=== PATIENT | female | born 1980 | race American Indian/Alaskan Native ===

== ENCOUNTER 2017-06-04 16:32 | Emergency (ER) | payer OTHER ==
[2017-06-04 16:33] VITALS: BMI 29.0
[2017-06-04 16:53] VITALS: PULSE 75; TEMP 98
--- NOTE | 2017-06-04 17:13 | ED PDOC ---
Arrival/HPI - General Historian: Patient - General Chief Complaint: Abnormal Skin Integrity Time Seen by Provider: 06/04/17 16:58 - History of Present Illness Narrative History of Present Illness (Text): 06/04/17 17:54 36yo female who present with few days history of very pruritic rash to her back , face and neck. She denies previous history. Denies any inciting factors. Denies SOB, drooling, chest pain, any other complaint. (Danny Lennon) Past Medical History - Provider Review Nursing Documentation Reviewed: Yes - Infectious Disease Hx of Infectious Diseases: None - Tetanus Immunization Tetanus Immunization: Unknown - Reproductive Menopause: No - Cardiac Hx Cardiac Disorders: No - Pulmonary Hx Respiratory Disorders: No - Neurological Hx Neurological Disorder: No - HEENT Hx HEENT Disorder: No - Renal Hx Renal Disorder: No - Endocrine/Metabolic Hx Endocrine Disorders: No - Hematological/Oncological Hx Blood Disorders: No - Integumentary Hx Dermatological Disorder: No - Musculoskeletal/Rheumatological Hx Musculoskeletal Disorders: Yes Hx Back Pain: Yes Hx Herniated Disk: Yes Other/Comment: sciatica - Gastrointestinal Hx Gall Bladder Disease: Yes - Genitourinary/Gynecological Hx Genitourinary Disorders: Yes Hx Urinary Tract Infection: Yes Other/Comment: OVARIAN CYST, ENDOMETRIOSIS. L ovary removed - Psychiatric Hx Anxiety: Yes Hx Substance Use: No - Surgical History Hx Cholecystectomy: Yes (09/09/15) Other/Comment: right ovary removed - Anesthesia Hx Anesthesia: Yes Hx Anesthesia Reactions: No Hx Malignant Hyperthermia: No - Suicidal Assessment Feels Threatened In Home Enviroment: No Family/Social History - Physician Review Nursing Documentation Reviewed: Yes Family/Social History: Unknown Family HX Smoking Status: Heavy Smoker > 10 Cigarettes Daily Hx Alcohol Use: Yes Frequency of alcohol use: Socially Hx Substance Use: No Hx Substance Use Treatment: No Allergies/Home Meds Allergies/Adverse Reactions: Allergies chocolate flavor Allergy (Verified 06/04/17 16:52) ANGIOEDEMA coconut Adverse Reaction (Verified 06/04/17 16:52) RASH Home Medications: Home Meds Medication Instructions Recorded Confirmed Alprazolam [Xanax] 2 mg PO BID 09/02/15 06/04/17 Tizanidine HCl [Zanaflex Capsule] 4 mg PO HS 06/17/16 06/04/17 oxyCODONE [oxyCODONE Immediate 30 mg PO TID 12/06/16 06/04/17 Release Tab] Review of Systems - Physician Review All systems were reviewed & negative as marked: Yes - Review of Systems Constitutional: Normal Eyes: Normal ENT: Normal Respiratory: Normal Cardiovascular: Normal Gastrointestinal: Normal Genitourinary Female: Normal Musculoskeletal: Normal Skin: Rash, Pruritis Neurological: Normal Endocrine: Normal Hemo/Lymphatic: Normal Psychiatric: Normal Physical Exam Vital Signs Reviewed: Yes Temperature: Afebrile Blood Pressure: Normal Pulse: Regular Respiratory Rate: Normal Appearance: Positive for: Well-Appearing, Non-Toxic, Comfortable Pain Distress: None Mental Status: Positive for: Alert and Oriented X 3 - Systems Exam Head: Present: Atraumatic, Normocephalic Pupils: Present: PERRL Extroacular Muscles: Present: EOMI Conjunctiva: Present: Normal Mouth: Present: Moist Mucous Membranes Neck: Present: Normal Range of Motion Respiratory/Chest: Present: Clear to Auscultation, Good Air Exchange. No: Respiratory Distress, Accessory Muscle Use Cardiovascular: Present: Regular Rate and Rhythm, Normal S1, S2. No: Murmurs Abdomen: Present: Normal Bowel Sounds. No: Tenderness, Distention, Peritoneal Signs Back: Present: Normal Inspection Upper Extremity: Present: Normal Inspection. No: Cyanosis, Edema Lower Extremity: Present: Normal Inspection. No: Edema Neurological: Present: GCS=15, CN II-XII Intact, Speech Normal Skin: Present: Warm, Dry, Rashes (Hypopigmented macule/patches noted on upper back and face), Normal Color Psychiatric: Present: Alert, Oriented x 3, Normal Insight, Normal Concentration Medical Decision Making ED Course and Treatment: 06/04/17 18:35 Pt was DC home with a rx of Ketoconazole cream and referred to a Endoscope Technician. (Danny Lennon A) I was available for consultation during PA evaluation. The chart was reviewed by me, and I agree with disposition. The documented history was done by the physician guest relations agent. The documented physical exam was done by the physician guest relations agent. The documented procedures were done by the physician guest relations agent. ( Rosalio Alegria) Disposition/Present on Arrival - Present on Arrival Any Indicators Present on Arrival: No History of DVT/PE: No History of Uncontrolled Diabetes: No Urinary Catheter: No History of Decub. Ulcer: No History Surgical Site Infection Following: None - Disposition Have Diagnosis and Disposition been Completed?: Yes Disposition Time: 17:20 Patient Plan: Discharge - Disposition Diagnosis: Tinea versicolor Disposition: HOME/ ROUTINE Condition: STABLE Discharge Instructions (ExitCare): Tinea Versicolor (ED) Additional Instructions: Follow up with your doctor/Endoscope Technician Return to ED for any new or worsening symptoms Prescriptions: Ketoconazole 2% Cr [Nizoral] 2 % TP DAILY #2 Referrals: Anabelle Mcpherson MD [Staff Provider] - Follow up with primary
[2017-06-04 17:31] VITALS: BP 124/80; RESP 18; O2SAT 99
== END 2017-06-04 17:25 | disposition home or self-care (01) ==
LOC: ED 16:32
DX: B36.0 Pityriasis versicolor (principal)

== ENCOUNTER 2017-08-01 18:53 | Emergency (ER) | payer OTHER ==
[2017-08-01 18:53] VITALS: BMI 29.0
== END 2017-08-01 20:11 | disposition left against medical advice (07) ==
LOC: ED 18:53
DX: Z02.89 Encounter for other administrative examinations (principal); L02.91 Cutaneous abscess, unspecified

== ENCOUNTER 2018-01-27 13:29 | Emergency (ER) | payer OTHER ==
[2018-01-27 13:30] VITALS: BMI 29.0
[2018-01-27 14:25] VITALS: RESP 18; TEMP 98; O2SAT 97
[2018-01-27] MEDS ORDERED: HYDROmorphone 0.5 mg/0.5 ml ISec IVP PRN (14:45)
--- NOTE | 2018-01-27 14:55 | ED PDOC ---
Arrival/HPI <Yoseph Holley - Last Filed: 01/27/18 16:35> - General Historian: Patient - History of Present Illness Time/Duration: Prior to Arrival, Other (2 weeks) Symptom Onset: Gradual Symptom Course: Unchanged Quality: Unable to Describe Severity Level: 10 Activities at Onset: Rest Context: Home <Darek Almanzar - Last Filed: 01/27/18 19:22> - General Chief Complaint: Pain, Chronic Time Seen by Provider: 01/27/18 13:30 - History of Present Illness Narrative History of Present Illness (Text): 01/27/18 15:05 37F w/ history of chronic back pain, spinal stenosis 2/2 herniated disc in thoracic and lumbar, anxiety, PTSD presents [place] [facility] w/ left sided arm pain, numbness, and unable to move that has been getting progressively worse over the last 2 weeks. Patient denies any acute trauma to the area. Admits to having similar symptoms 2 years ago, that resolved after taking pain medication. Patient states that she has not been able to use the left arm, and keeps it statinary and immobile all day. Baseline for LUE is movement and ADLs. Currently patient sees pain management Melita Loja GEAR MILLING MACHINE SET UP OPERATOR in [place], and Psychiatry Dr. Ragland in [place]. PMH: herniated disc lumbar and thoracic, spinal stenosis, anxiety, PTSD, endometriosis PSH: [facility] 2014 ALL: NKDA SocialHx: 1/2 ppd > 30 years, occasional ETOH, denies recrational drug use. Lives w/ female partner Meds: oxy 30 TID, xanax 2mg, nortiriptyline (Darek) Past Medical History - Provider Review Nursing Documentation Reviewed: Yes - Travel History Have you recently traveled outside [place] w/in the past 3 mons?: No - Past History Past History: Non-Contributing - Infectious Disease Hx of Infectious Diseases: None - Tetanus Immunization Tetanus Immunization: Unknown - Cardiac Hx Cardiac Disorders: No - Pulmonary Hx Respiratory Disorders: No - Neurological Hx Neurological Disorder: No - HEENT Hx HEENT Disorder: No - Renal Hx Renal Disorder: No - Endocrine/Metabolic Hx Endocrine Disorders: No - Hematological/Oncological Hx Blood Disorders: No - Integumentary Hx Dermatological Disorder: No - Musculoskeletal/Rheumatological Hx Musculoskeletal Disorders: Yes Hx Back Pain: Yes Hx Herniated Disk: Yes Other/Comment: sciatica - Gastrointestinal Hx Gall Bladder Disease: Yes - Genitourinary/Gynecological Hx Genitourinary Disorders: Yes Hx Urinary Tract Infection: Yes Other/Comment: OVARIAN CYST, ENDOMETRIOSIS. L ovary removed - Psychiatric Hx Anxiety: Yes Hx Substance Use: No - Surgical History Hx Cholecystectomy: Yes (09/09/15) Other/Comment: right ovary removed - Anesthesia Hx Anesthesia: Yes Hx Anesthesia Reactions: No Hx Malignant Hyperthermia: No - Suicidal Assessment Feels Threatened In Home Enviroment: No <Darek Amlanzar - Last Filed: 01/27/18 19:22> Family/Social History Family/Social History: No Known Family HX Smoking Status: Heavy Smoker > 10 Cigarettes Daily Hx Alcohol Use: Yes Hx Substance Use: No Hx Substance Use Treatment: No <Darek Almanzar - Last Filed: 01/27/18 19:22> Allergies/Home Meds <Yoseph Holley - Last Filed: 01/27/18 16:35> <Darek Almanzar - Last Filed: 01/27/18 19:22> Allergies/Adverse Reactions: Allergies chocolate flavor Allergy (Verified 06/04/17 16:52) ANGIOEDEMA coconut Adverse Reaction (Verified 06/04/17 16:52) RASH Home Medications: Home Meds Medication Instructions Recorded Confirmed Alprazolam [Xanax] 2 mg PO BID 09/02/15 06/04/17 Tizanidine HCl [Zanaflex Capsule] 4 mg PO HS 06/17/16 06/04/17 oxyCODONE [oxyCODONE Immediate 30 mg PO TID 12/06/16 06/04/17 Release Tab] Review of Systems - Physician Review All systems were reviewed & negative as marked: Yes <Yoseph Holley - Last Filed: 01/27/18 16:35> - Review of Systems Constitutional: Fatigue Eyes: Normal ENT: Normal Respiratory: Normal Cardiovascular: Normal. absent: Chest Pain, Palpitations, Edema Gastrointestinal: absent: Abdominal Pain Musculoskeletal: Neck Pain, Joint Swelling, Other (localized swelling in joint) Skin: absent: Rash, Pruritis, Skin Lesions <Darek Almanzar - Last Filed: 01/27/18 19:22> Physical Exam Vital Signs Reviewed: Yes Temperature: Afebrile Blood Pressure: Normal Pulse: Regular Respiratory Rate: Normal Appearance: Positive for: Well-Appearing, Comfortable Pain Distress: Severe Mental Status: Positive for: Alert and Oriented X 3 - Systems Exam Head: Present: Atraumatic Pupils: Present: PERRL Extroacular Muscles: Present: EOMI Mouth: Present: Moist Mucous Membranes Respiratory/Chest: Present: Clear to Auscultation, Good Air Exchange. No: Respiratory Distress, Accessory Muscle Use, Wheezes Cardiovascular: Present: Regular Rate and Rhythm, Normal S1, S2. No: Murmurs, Tachycardic, Bradycardic Abdomen: No: Tenderness, Distention, Normal Bowel Sounds, Peritoneal Signs Upper Extremity: Present: NORMAL PULSES, Swelling (Localized swelling in LUE around shoulder. No distal swelling or pitting edema), Capillary Refill < 2s. No: Edema Neurological: Present: GCS=15, CN II-XII Intact, Speech Normal Skin: Present: Warm Psychiatric: Present: Alert, Oriented x 3 <Darek Almanzar - Last Filed: 01/27/18 19:22> Vital Signs Temp Pulse Resp BP Pulse Ox 01/27/18 18:43 84 18 133/95 H 97 01/27/18 13:30 98.0 F 80 18 140/101 H 97 Medical Decision Making <Yoseph Holley - Last Filed: 01/27/18 16:35> Re-evaluation Time: 18:30 (Patient's pain and ROM of LUE as improved) Reassessment Condition: Re-examined, Improved - EKG Interpretation Interpreted by ED Physician: Yes Type: 12 lead EKG <Darek Almanzar - Last Filed: 01/27/18 19:22> ED Course and Treatment: 01/27/18 16:35 37 year old female presents to the Emergency department for left sided arm discomfort and numbness. In agreement with resident note, which includes further HPI details. Patient was seen and evaluated with resident, came up with plan and treatment together. (Yoseph Holley) 01/27/18 15:09 CXR PA&LAT XRay of shoulder to assess structure CBC & CMP EKG Pain control anxiety control (Darek Almanzar) - Lab Interpretations Lab Results: 01/27/18 15:35 01/27/18 15:33 Lab Results 01/27/18 15:35: WBC 7.0 D, RBC 5.21, Hgb 14.4, Hct 43.8, MCV 84.1, MCH 27.6, MCHC 32.9, RDW 13.8, Plt Count 412, MPV 10.0, Gran % 55.6, Lymph % (Auto) 36.8 H , Davidson % (Auto) 6.0, Eos % (Auto) 1.0 L, Baso % (Auto) 0.6, Gran # 3.89, Lymph # (Auto) 2.6, Davidson # (Auto) 0.4, Eos # (Auto) 0.1, Baso # (Auto) 0.04 01/27/18 15:33: Sodium 142, Potassium 4.5, Chloride 106, Carbon Dioxide 25, Anion Gap 16, BUN 5 L, Creatinine 0.6 L, Est GFR ( Amer) > 60, Est GFR ( Non-Af Amer) > 60, Random Glucose 95, Calcium 10.1, Total Bilirubin 0.3, AST 43 H, ALT 64 H, Alkaline Phosphatase 81, Total Protein 8.1, Albumin 4.4, Globulin 3.7, Albumin/Globulin Ratio 1.2 - RAD Interpretation Narrative RAD Interpretations (Text): Reviewed Upper extremity duplex No signs of acute DVT RADs imaging reviewed. No signs of acute fractures or Trauma. No pneumothorax. XRays stable (Darek Almanzar) Radiology Orders: 01/27/18 14:45 CHEST TWO VIEWS (PA/LAT) [RAD] Stat SHOULDER LEFT [RAD] Stat DUPLEX UPPER EXTRM VEIN LEFT [US] Stat - EKG Interpretation EKG Interpretation (Text): 01/27/18 18:22 EKG- NSR; normal EKG (Darek Almanzar) - Medication Orders Current Medication Orders: Discontinued Medications Diazepam (Valium) 5 mg PO ONCE ONE PRN Reason: Protocol Stop: 01/27/18 14:46 Last Admin: 01/27/18 15:33 Dose: 5 mg Hydromorphone HCl (Dilaudid) 0.5 mg IVP STAT STA Stop: 01/27/18 15:14 Last Admin: 01/27/18 15:33 Dose: 0.5 mg MAR Pain Assessment Document 01/27/18 15:33 GMD (Rec: 01/27/18 15:33 GMD [id number]) Pain Reassessment Is this a pain reassessment? No IVP Administration Document 01/27/18 15:33 GMD (Rec: 01/27/18 15:33 GMD [id number]) Charges for Administration # of IVP Administrations 1 Hydromorphone HCl (Dilaudid) 0.5 mg IVP STAT STA Stop: 01/27/18 18:22 Last Admin: 01/27/18 18:38 Dose: 0.5 mg Ketorolac Tromethamine (Toradol) 30 mg IVP STAT STA Stop: 01/27/18 14:46 Last Admin: 01/27/18 15:33 Dose: 30 mg MAR Pain Assessment Document 01/27/18 15:33 GMD (Rec: 01/27/18 15:33 GMD [id number]) Pain Reassessment Is this a pain reassessment? No IVP Administration Document 01/27/18 15:33 GMD (Rec: 01/27/18 15:33 GMD [id number]) Charges for Administration # of IVP Administrations 1 - PA / GEAR MILLING MACHINE SET UP OPERATOR / Resident Statement / has reviewed & agrees with the documentation as recorded. / has examined the patient and agrees with the treatment plan. <Yoseph Holley - Last Filed: 01/27/18 16:35> Disposition/Present on Arrival <Yospeh Holley - Last Filed: 01/27/18 16:35> - Present on Arrival Any Indicators Present on Arrival: No History of DVT/PE: No History of Uncontrolled Diabetes: No Urinary Catheter: No History of Decub. Ulcer: No History Surgical Site Infection Following: None - Disposition Have Diagnosis and Disposition been Completed?: Yes Disposition Time: 19:22 Patient Plan: Discharge <Darek Almanzar - Last Filed: 01/27/18 19:22> - Disposition Diagnosis: Arm pain, left, Cervical radicular pain, Chronic pain Disposition: HOME/ ROUTINE Condition: IMPROVED Discharge Instructions (ExitCare): Radiculopathy, Chronic Pain (DC), Chronic Neck Pain (DC) Print Language: SUDANESE Additional Instructions: Make sure to see your doctor in 1-2 days DRINK PLENTY OF FLUIDS AVOID repetitive/heavy weight bearing to left arm take your medications as prescribed RETURN TO ED IF worse pain, cant breath, persistent vomiting, high fever >101- 102 for hours, altered behavior, unable to urinate, heavy/persistent bleeding, passing out, chest pain, or other medical emergencies Prescriptions: diaZEpam [Valium] 5 mg PO TID PRN #15 tab PRN Reason: Muscle Spasm Ibuprofen [Motrin] 600 mg PO TID PRN #30 tab PRN Reason: Pain, Mild (1-3) Referrals: Tom Mortensen MD [Staff Provider] - Follow up with primary Vamsi Mckeon MD [Staff Provider] - Follow up with primary Melita Loja APN [Primary Care Provider] - Follow up with primary Forms: [employer] (Setswana)
[2018-01-27] MEDS ORDERED: HYDROmorphone 0.5 mg/0.5 ml ISec IVP STA ×2 (15:13→18:21)
[2018-01-27 15:54] LABS: BASO # 0.04 K/mm3 (0.0-2.0); BASO % 0.6 % (0.0-3.0); EOS # 0.1 (0.0-0.7); GRAN # 3.89 (1.4-6.5); GRAN % 55.6 % (50.0-68.0); HEMOGLOBIN 14.4 g/dL (12.0-16.0); LYMPH # 2.6 (1.2-3.4); LYMPH % 36.8 % (22.0-35.0); MEAN CELL VOLUME 84.1 fl (80.0-105.0); MEAN CORPUSCULAR HEMOGLOBIN 27.6 pg (25.0-35.0); MEAN CORPUSCULAR HGB CONC 32.9 g/dl (31.0-37.0); MONO # 0.4 (0.1-0.6); RBC 5.21 10^6/uL (3.5-6.1); RED CELL DISTRIBUTION WIDTH 13.8 % (11.5-14.5)
[2018-01-27 16:05] LABS: ALB/GLOB RATIO 1.2 (1.1-1.8); ALBUMIN 4.4 g/dL (3.0-4.8); ALT/SGPT 64 U/L (7-56); AST/SGOT 43 U/L (14-36); BLOOD UREA NITROGEN 5 mg/dL (7-21); CALCIUM 10.1 mg/dL (8.4-10.5); GFR AFRICAN-AMERICAN > 60; GFR NON-AFRICAN AMERICAN > 60
--- NOTE | 2018-01-27 18:29 | US ---
PROCEDURE: Left upper extremity venous ultrasound HISTORY: Arm pain and swelling. Evaluate for deep venous thrombosis. PHYSICIAN(S): Eladio Danielle MD. FINDINGS: The visualized leftinternal jugular vein is sonographically normal and compressible. No evidence of obstruction or thrombus is seen. The visualized segments of the left subclavian vein are patent with normal waveforms. No sonographic evidence of obstruction or thrombosis is seen. The visualized deep venous system of the proximal leftupper extremity is sonographically normal and compressible. IMPRESSION: 1. No sonographic evidence for deep venous thrombosis in the visualized segments of the left upper extremity.
[2018-01-27 18:43] VITALS: BP 133/95; PULSE 84
--- NOTE | 2018-01-28 08:09 | RAD ---
HISTORY: UE swelling COMPARISON: No prior. TECHNIQUE: Chest PA and lateral FINDINGS: LUNGS: No active pulmonary disease. PLEURA: No significant pleural effusion identified. No pneumothorax apparent. CARDIOVASCULAR: Normal. OSSEOUS STRUCTURES: No significant abnormalities. VISUALIZED UPPER ABDOMEN: Normal. OTHER FINDINGS: None. IMPRESSION: No active disease.
--- NOTE | 2018-01-28 08:10 | RAD ---
PROCEDURE: Radiographs of the Left Shoulder HISTORY: LUE swelling COMPARISON: No prior. FINDINGS: BONES: Normal. No fracture. JOINTS: Normal. Glenohumeral and acromioclavicular joints preserved. No osteoarthritis. SOFT TISSUES: Normal. OTHER FINDINGS: None. IMPRESSION: Normal radiographs of the left shoulder.
--- NOTE | 2018-01-28 09:36 | CARD ---
APPROVED REPORT EKG Measurement Heart [id number] <Conclusion> Normal sinus rhythm with sinus arrhythmia Normal ECG
== END 2018-01-27 19:18 | disposition home or self-care (01) ==
LOC: ED 13:29
DX: G89.29 Other chronic pain (principal); M54.12 Radiculopathy, cervical region; M79.602 Pain in left arm; F17.210 Nicotine dependence, cigarettes, uncomplicated
CPT/HCPCS: 71046; 73030; 80053; 85025; 93005; 93971; 96374; 96375; 96376; 99285; J1170; J1885

== ENCOUNTER 2019-02-13 14:05 | Emergency (ER) | payer OTHER ==
[2019-02-13 14:05] VITALS: BMI 29.0
[2019-02-13 14:39] VITALS: RESP 18; TEMP 98.2
[2019-02-13] MEDS ORDERED: Sodium Chloride 0.9% 1,000 ML IV STA (14:55)
[2019-02-13] MEDS ORDERED: Valproate 500 MG in Sodium Chloride 0.9% 100 ML IVPB ONE (14:55)
[2019-02-13] MEDS ORDERED: methylPREDNISolone 500 MG in Sodium Chloride 0.9% 100 ML IVPB ONE (14:55)
[2019-02-13] MEDS ORDERED: Magnesium Sulfate 1 gm in D5W 1 GM/100 ML BAG IVPB ONE (14:55)
--- NOTE | 2019-02-13 16:13 | ED PDOC ---
Arrival/HPI - General Chief Complaint: Headache Time Seen by Provider: 02/13/19 14:31 - History of Present Illness Narrative History of Present Illness (Text): Patient reports 5 day history of headache and nausea/vomiting. States that she has had chronic headaches, sees Dr. Mortensen as outpatient. Also reports "neck and back problems" for which she takes pain medications for. She has also been taking 800mg ibuprofen with no relief. Reports some right hand tingling without weakness, and neck pain "because I have to hold my head up". Denies dizziness, syncope, vision change, or ataxia. Past Medical History - Provider Review Nursing Documentation Reviewed: Yes STACI Report Viewed: Yes - Travel History Have you recently traveled outside [place] w/in the past 3 mons?: No - Past History Past History: Non-Contributing - Infectious Disease Hx of Infectious Diseases: None - Tetanus Immunization Tetanus Immunization: Unknown - Reproductive Menopause: No - Cardiac Hx Cardiac Disorders: No - Pulmonary Hx Respiratory Disorders: No - Neurological Hx Neurological Disorder: No - HEENT Hx HEENT Disorder: No - Renal Hx Renal Disorder: No - Endocrine/Metabolic Hx Endocrine Disorders: No - Hematological/Oncological Hx Blood Disorders: No - Integumentary Hx Dermatological Disorder: No - Musculoskeletal/Rheumatological Hx Musculoskeletal Disorders: Yes Hx Back Pain: Yes Hx Herniated Disk: Yes Other/Comment: sciatica - Gastrointestinal Hx Gall Bladder Disease: Yes - Genitourinary/Gynecological Hx Genitourinary Disorders: Yes Hx Urinary Tract Infection: Yes Other/Comment: OVARIAN CYST, ENDOMETRIOSIS. L ovary removed - Psychiatric Hx Anxiety: Yes Hx Substance Use: No - Surgical History Hx Cholecystectomy: Yes (09/09/15) Other/Comment: right ovary removed - Anesthesia Hx Anesthesia: Yes Hx Anesthesia Reactions: No Hx Malignant Hyperthermia: No - Suicidal Assessment Feels Threatened In Home Enviroment: No Family/Social History - Physician Review Nursing Documentation Reviewed: Yes Family/Social History: Unknown Family HX Smoking Status: Heavy Smoker > 10 Cigarettes Daily Hx Alcohol Use: Yes Hx Substance Use: No Hx Substance Use Treatment: No Allergies/Home Meds Allergies/Adverse Reactions: Allergies chocolate flavor Allergy (Verified 08/04/18 15:35) ANGIOEDEMA coconut Adverse Reaction (Verified 08/04/18 15:35) RASH Home Medications: Home Meds Medication Instructions Recorded Confirmed Alprazolam [Xanax] 2 mg PO BID 09/02/15 08/04/18 oxyCODONE [oxyCODONE Immediate 30 mg PO TID 12/06/16 08/04/18 Release Tab] FLUoxetine [Prozac] 20 mg PO DAILY 08/04/18 08/04/18 Propranolol HCl [Propranolol HCl 60 mg PO DAILY 08/04/18 08/04/18 ER] Review of Systems - Review of Systems Constitutional: Normal Eyes: absent: Vision Changes, Photophobia, Eye Pain ENT: Normal Respiratory: Normal Cardiovascular: Normal Gastrointestinal: Nausea, Vomiting Musculoskeletal: Neck Pain Skin: Normal Neurological: Headache. absent: Dizziness, Gait Changes Physical Exam Vital Signs Reviewed: Yes Vital Signs Temp Pulse Resp BP Pulse Ox 02/13/19 14:37 98.2 F 100 H 18 132/84 96 02/13/19 14:23 97.7 F 101 H 20 137/97 H 100 Temperature: Afebrile Blood Pressure: Normal Pulse: Regular Respiratory Rate: Normal Appearance: Positive for: Non-Toxic Mental Status: Positive for: Alert and Oriented X 3 - Systems Exam Head: Present: Atraumatic, Normocephalic Pupils: Present: PERRL Extroacular Muscles: Present: EOMI Conjunctiva: Present: Normal Mouth: Present: Moist Mucous Membranes Neck: Present: Normal Range of Motion. No: Meningeal Signs, MIDLINE TENDERNESS, Paraspinal Tenderness Respiratory/Chest: Present: Clear to Auscultation Cardiovascular: Present: Regular Rate and Rhythm Abdomen: No: Tenderness, Rebound, Guarding Upper Extremity: Present: Normal Inspection. No: Neurovascularly Intact (Subjective decreased sensation R hand. No weakness noted.) Lower Extremity: Present: Normal Inspection Neurological: Present: GCS=15 Skin: Present: Warm, Dry Psychiatric: Present: Alert, Oriented x 3 Medical Decision Making ED Course and Treatment: Ordered 1L NS bolus, toradol ivp, reglan ivp for headache. Case discussed with Dr. Mortensen, patient's neurologist. Patient has a history of migraine, often with auras and other neurological symptoms. Agrees with toradol, reglan, and IV fluids. Also would like 500mg solumedrol, 500mg depakon, and 1mg mag sulfate. He states that patient takes a lot of narcotics for her chronic pain, and he has warned her multiple times that she is most likely developing rebound headaches secondary to a large amount of opiate use. Patient received all medications except for depakon, reported resolution of CANNON prior to that medication getting administered. States that she is ready to go home. Advised outpatient followup with Dr. Mortensen. Patient AAOx3 and able to ambulate. Stable for discharge home. - Medication Orders Current Medication Orders: Discontinued Medications Magnesium Sulfate/Dextrose (Magnesium Sulfate 1 Gm/100 Ml D5w) 1 gm in 100 mls @ 100 mls/hr IVPB ONCE ONE Stop: 02/13/19 15:54 Last Admin: 02/13/19 15:39 Dose: 100 mls/hr eMAR Start Stop Document 02/13/19 15:39 LA (Rec: 02/13/19 15:40 LA [id number]) Intravenous Solution Start Date 02/13/19 Start Time 15:39 End Date 02/13/19 End time 16:39 Total Infusion Time 60 Methylprednisolone 500 mg/ (Sodium Chloride) 100 mls @ 200 mls/hr IVPB ONCE ONE Stop: 02/13/19 14:56 Sodium Chloride (Sodium Chloride 0.9%) 1,000 mls @ 999 mls/hr IV .Q1H1M STA Stop: 02/13/19 15:55 Last Admin: 02/13/19 15:38 Dose: 999 mls/hr eMAR Start Stop Document 02/13/19 15:38 LA (Rec: 02/13/19 15:38 LA [id number]) Intravenous Solution Start Date 02/13/19 Start Time 15:38 End Date 02/13/19 End time 16:39 Total Infusion Time 61 Valproate Sodium 500 mg/ (Sodium Chloride) 105 mls @ 100 mls/hr IVPB ONCE ONE Stop: 02/13/19 15:57 Ketorolac Tromethamine (Toradol) 30 mg IVP STAT STA Stop: 02/13/19 14:56 Last Admin: 02/13/19 15:39 Dose: 30 mg MAR Pain Assessment Document 02/13/19 15:39 LA (Rec: 02/13/19 15:39 LA [id number]) Pain Reassessment Is this a pain reassessment? No Sleep Is patient sleeping during reassessment? No Presence of Pain Presence of Pain Yes Pain Scale Used Protocol: PSCALES Pain Scale Used Numeric Location Pain Location Body [employer] Description Intensity of Pain at present 81 IVP Administration Document 02/13/19 15:39 LA (Rec: 02/13/19 15:39 CO [id number]) Charges for Administration # of IVP Administrations 1 Metoclopramide HCl (Reglan) 10 mg IVP STAT STA Stop: 02/13/19 14:56 Last Admin: 02/13/19 15:38 Dose: 10 mg IVP Administration Document 02/13/19 15:38 LA (Rec: 02/13/19 15:38 CO [id number]) Charges for Administration # of IVP Administrations 1 Disposition/Present on Arrival - Present on Arrival Any Indicators Present on Arrival: No History of DVT/PE: No History of Uncontrolled Diabetes: No Urinary Catheter: No History of Decub. Ulcer: No History Surgical Site Infection Following: None - Disposition Have Diagnosis and Disposition been Completed?: Yes Diagnosis: Headache Disposition: HOME/ ROUTINE Disposition Time: 19:00 Patient Problems: Current Active Problems Problem Status Onset Headache Acute Condition: STABLE Discharge Instructions (ExitCare): Migraine Headache (DC) Additional Instructions: CARMELO DOBBINS, thank you for letting us take care of you today. Your provider was Barbara Roman MD and you were treated for HEADACH/VOMITING. The emergency medical care you received today was directed at your acute symptoms. If you were prescribed any medication, please fill it and take as directed. It may take several days for your symptoms to resolve. Return to the Emergency Department if your symptoms worsen, do not improve, or if you have any other problems. Please contact your doctor or call one of the physicians/clinics you have been referred to that are listed on the Patient Visit Information form that is included in your discharge packet. Bring any paperwork you were given at discharge with you along with any medications you are taking to your follow up visit. Our treatment cannot replace ongoing medical care by a primary care provider outside of the emergency department. Thank you for allowing the [facility] team to be part of your care today. If you had an X-Ray or CT scan: A Radiologist will review the ED reading if any change in treatment is needed we will contact you. If you had a blood, urine, or wound culture: It will take several days for the results, if any change in treatment is needed we will contact you. If you had an STI test: It will take 48 hours for the results. Please call after 1 week if you have not heard back. Referrals: Darryl Mohan MD [Primary Care Provider] - Follow up with primary Umesh Mortensen MD [Staff Provider] - Follow up with primary Forms: [employer] (Spanish)
[2019-02-13 17:50] VITALS: O2SAT 100
[2019-02-13 19:32] VITALS: BP 124/70; PULSE 80
== END 2019-02-13 19:32 | disposition home or self-care (01) ==
LOC: ED 14:05
DX: R51 Headache (principal)
CPT/HCPCS: 81025; 96361; 96365; 96367; 96375; 99285; J1885; J2765; J2930; J3475; J7030

== ENCOUNTER 2019-04-09 18:17 | Emergency (ER) | payer OTHER ==
[2019-04-09 18:18] VITALS: BMI 29.0
--- NOTE | 2019-04-09 18:39 | ED PDOC ---
Arrival/HPI - General Chief Complaint: Finger,Hand,&Wrist Time Seen by Provider: 04/09/19 18:22 Historian: Patient - History of Present Illness Narrative History of Present Illness (Text): 04/09/19 18:35 38 y/o female, pmh including chronic headache/neck pain, nkda, last tetanus doesn't remember, c/o lt. hand 2nd digit finger injury x 1 hour. Pt. stated that her lt. hand 2nd digit accidentally slammed by the door on the DIPJ region, had pain, concern about fracture, no numbness or tingling, no night sweat, no rash, no other medical or psychological complaints. Past Medical History - Provider Review Nursing Documentation Reviewed: Yes - Past History Past History: Non-Contributing - Infectious Disease Hx of Infectious Diseases: None - Tetanus Immunization Tetanus Immunization: Unknown - Cardiac Hx Cardiac Disorders: No - Pulmonary Hx Respiratory Disorders: No - Neurological Other/Comment: mild stroke - HEENT Hx HEENT Disorder: No - Renal Hx Renal Disorder: No - Endocrine/Metabolic Hx Endocrine Disorders: No - Hematological/Oncological Hx Blood Disorders: No - Integumentary Hx Dermatological Disorder: No - Musculoskeletal/Rheumatological Hx Musculoskeletal Disorders: Yes Hx Back Pain: Yes Hx Herniated Disk: Yes Other/Comment: sciatica - Gastrointestinal Hx Gall Bladder Disease: Yes - Genitourinary/Gynecological Hx Genitourinary Disorders: Yes Hx Urinary Tract Infection: Yes Other/Comment: OVARIAN CYST, ENDOMETRIOSIS. L ovary removed - Psychiatric Hx Anxiety: Yes Hx Post Traumatic Stress Disorder: Yes Hx Substance Use: No - Surgical History Hx Cholecystectomy: Yes (09/09/15) Other/Comment: right ovary removed - Anesthesia Hx Anesthesia: Yes Hx Anesthesia Reactions: No Hx Malignant Hyperthermia: No - Suicidal Assessment Feels Threatened In Home Enviroment: No Family/Social History - Physician Review Nursing Documentation Reviewed: Yes Family/Social History: Unknown Family HX Smoking Status: Heavy Smoker > 10 Cigarettes Daily Hx Alcohol Use: Yes Hx Substance Use: No Hx Substance Use Treatment: No Allergies/Home Meds Allergies/Adverse Reactions: Allergies chocolate flavor Allergy (Verified 04/09/19 18:26) ANGIOEDEMA coconut Adverse Reaction (Verified 04/09/19 18:26) RASH Home Medications: Home Meds Medication Instructions Recorded Confirmed Alprazolam [Xanax] 2 mg PO BID 09/02/15 08/04/18 oxyCODONE [oxyCODONE Immediate 30 mg PO TID 12/06/16 08/04/18 Release Tab] FLUoxetine [Prozac] 20 mg PO DAILY 08/04/18 08/04/18 Propranolol HCl [Propranolol HCl 60 mg PO DAILY 08/04/18 08/04/18 ER] Review of Systems - Review of Systems Constitutional: absent: Fatigue, Fevers Eyes: absent: Vision Changes ENT: absent: Hearing Changes Respiratory: absent: SOB, Cough Cardiovascular: absent: Chest Pain Gastrointestinal: absent: Abdominal Pain, Diarrhea, Nausea, Vomiting Musculoskeletal: Arthralgias. absent: Back Pain, Neck Pain, Joint Swelling, Myalgias Skin: Other (abrasion). absent: Rash, Pruritis Neurological: absent: Headache, Dizziness Psychiatric: absent: Anxiety, Depression, Suicidal Ideation Physical Exam Vital Signs Reviewed: Yes Vital Signs Temp Pulse Resp BP Pulse Ox 04/09/19 18:25 97.6 F 78 18 136/88 98 Temperature: Afebrile Blood Pressure: Normal Pulse: Regular Respiratory Rate: Normal Appearance: Positive for: Well-Appearing, Non-Toxic, Comfortable Pain Distress: Mild Mental Status: Positive for: Alert and Oriented X 3 - Systems Exam Head: Present: Atraumatic, Normocephalic Pupils: Present: PERRL Extroacular Muscles: Present: EOMI Conjunctiva: Present: Normal Mouth: Present: Moist Mucous Membranes Neck: Present: Normal Range of Motion Respiratory/Chest: Present: Clear to Auscultation, Good Air Exchange. No: Respiratory Distress, Accessory Muscle Use Cardiovascular: Present: Regular Rate and Rhythm, Normal S1, S2. No: Murmurs Abdomen: No: Tenderness, Distention, Peritoneal Signs Back: Present: Normal Inspection Upper Extremity: Present: Normal Inspection, Other (Lt. hand 2nd digit: +ttp on the lt. hand 2nd digit DIPJ region with mild abrasion 0.2cm diameter, FROM without limitation, sensation intact, motor 5/5, +radial pulse, capillary refill< 2 seonds, neurovascular intact, pt. refused to removed or allow the me or ER staff to remove her acryclic nail for full examination but I don't see any hematoma or nail injury from the exterior. ). No: Cyanosis, Edema Lower Extremity: Present: Normal Inspection. No: Edema Neurological: Present: GCS=15, CN II-XII Intact, Speech Normal Skin: Present: Warm, Dry, Normal Color. No: Rashes Psychiatric: Present: Alert, Oriented x 3, Normal Insight, Normal Concentration Medical Decision Making ED Course and Treatment: 04/09/19 18:42 -preg test -xray -Tetanus -Wound irrigated with normal saline, clean with betadine, bacitracin and gauze dressing. -pt. refused me or any of the ER staffs to removed or touch her nail for full evaluation and examination. Pt. refused to be removed as well. She understands that her nail bed can not be fully evaluated for nail bed laceration/abrasion. 04/09/19 19:37 -Urine hcg is negative -Lt. hand 2nd digit ER wet read: no fracture or dislocation. -Finger splint applied. -Discharge home with motrin, bacitracin oinment, finger splint, see your own pmd and hand specialist in 2 days, return to the ER for any new or worsening signs or symptoms. - RAD Interpretation Radiology Orders: 04/09/19 18:35 HAND LEFT 2ND DIGIT (FINGER) [RAD] Stat normal left hand radiograph. [employer]person [employer]: Radiologist - PA / PIE DOUGH ROLLER / Resident Statement / has reviewed & agrees with the documentation as recorded. Disposition/Present on Arrival - Present on Arrival Any Indicators Present on Arrival: No History of DVT/PE: No History of Uncontrolled Diabetes: No Urinary Catheter: No History of Decub. Ulcer: No History Surgical Site Infection Following: None - Disposition Have Diagnosis and Disposition been Completed?: Yes Diagnosis: Abrasion, Finger contusion Disposition: HOME/ ROUTINE Disposition Time: 19:39 Patient Plan: Discharge Condition: GOOD Additional Instructions: -Discharge home with motrin, bacitracin oinment, finger splint, see your own pmd and hand specialist in 2 days, return to the ER for any new or worsening signs or symptoms. Prescriptions: Bacitracin Ointment [Bacitracin] 1 appful TOP BID #15 g Ibuprofen [Motrin] 600 mg PO QID PRN #30 tab PRN Reason: Other Referrals: PCP,NO [Primary Care Provider] - Follow up with primary Roland Cordova MD [Staff Provider] - Follow up with primary [facility] at [facility] [place] [Outside] - Follow up with primary Forms: ED01 (Micronesian), WORK NOTE
[2019-04-09 18:40] VITALS: RESP 18; TEMP 97.6
[2019-04-09 19:51] VITALS: BP 130/87; PULSE 75; O2SAT 100
--- NOTE | 2019-04-10 08:31 | RAD ---
PROCEDURE: Left Hand and 2nd digit radiographs. HISTORY: lt. hand 2nd digit DIPJ injury COMPARISON: None. TECHNIQUE: 3 views obtained. FINDINGS: BONES: Normal. No fracture. JOINTS: Normal. No osteoarthritic changes. SOFT TISSUES: Normal. OTHER FINDINGS: None. IMPRESSION: Normal left hand radiographs.
== END 2019-04-09 19:51 | disposition home or self-care (01) ==
LOC: ED 18:17
DX: S60.411A Abrasion of left index finger, initial encounter (principal); W23.0XXA Caught, crushed, jammed, or pinched between moving objects, initial encounter